=== PATIENT | male | born 1950 | race Caucasian/White ===

== ENCOUNTER 2016-06-16 01:42 | Day surgery (SDC) | payer OTHER ==
[~2016-06-16] VITALS: Ht 182.9 cm; Wt 102.0 kg
[~2016-06-16 01:42] MED LIST: LIP40 PO
[2016-06-16] MEDS ORDERED: 0.9% Sodium Chloride 1,000 ML IV SCH (06:00)
[2016-06-16] MEDS ORDERED: Sodium Chloride LOK Flush 10 mL Syringe IV PRN (06:00)
[2016-06-16] MEDS ORDERED: fentaNYL-PF 50 mCg/mL 2 mL Inj IVPUSH PRN (06:00)
[2016-06-16 12:23] VITALS: BP 137/88; PULSE 76; RESP 18; O2SAT 93
[2016-06-16 14:12] VITALS: BP 128/83; PULSE 74; RESP 16; O2SAT 95
[2016-06-16 14:22] VITALS: BP 137/87; PULSE 72; RESP 16; O2SAT 93
[2016-06-16 14:32] VITALS: BP 121/83; PULSE 84; RESP 16; O2SAT 91
--- NOTE | 2016-06-16 23:54 | ENDO ---
[address] [address] ENDOSCOPY PROCEDURE PATIENT: QUENTIN MUNIZ : 1950 MR#: [id number] ADMIT: 06/16/2016 JOB ID: [id number] DATE OF PROCEDURE: 06/16/2016 PRIMARY PROVIDER: Des Curtis DO. PROCEDURE: Colonoscopy with hot snare polypectomy and Endoclip deployment. INDICATIONS: A 65-year-old male with a personal history of colon polyps returning for surveillance. EQUIPMENT: [employer]. SEDATION: 1. Versed 3 mg. 2. Fentanyl 75 mcg. COMPLICATIONS: None identified. BOWEL PREPARATION: Fair, adequate exam. PROCEDURE INFORMATION: After the risks and benefits were explained, written and verbal informed consent was obtained. The patient was brought into the endoscopy suite and placed into the left lateral decubitus position. Sedation was achieved as above. A digital rectal examination was accomplished. No significant pathology appreciated. The scope was introduced into the rectum and advanced to the cecum as identified by the appendiceal orifice and ileocecal valve. The scope was slowly withdrawn to carefully examine the mucosa for any defects or lesions. Comprehensive rectal imaging was pursued. The colon then decompressed, the scope was removed from the patient, who tolerated the procedure well. FINDINGS: In the distal descending colon at about 35 cm from the anal verge there was a pedunculated approximately 1 cm bilobed polyp removed with hot snare. There was a small amount of heme associated with the stalk and we; therefore, elected to place a prophylactic resolution clip to prophylax against post polypectomy bleeding. No other significant pathology was appreciated throughout. ENDOSCOPIC DIAGNOSIS: Colon polyp. RECOMMENDATIONS: 1. Await histopathology. 2. Repeat colonoscopy in three years.
--- NOTE | 2016-06-24 16:03 | PATH ---
SURGICAL PATHOLOGY Attending Physician:Geeta Ryan CASE STATUS: Signed Out * Amended * PATIENT NAME: QUENTIN MUNIZ PID: [id number] : 1950 DATE COLLECTED:06/16/2016 00:00 SPECIMEN: Colon, Biopsy CLINICAL HISTORY: 1). DESCENDING COLON POLYP FINAL DIAGNOSIS: Descending Colon, Polyp, Biopsy: Tubular adenoma; negative for high-grade dysplasia. ICD10 D12.4 This case was reviewed and interpreted by Dr. Elis Duke. The final diagnosis is unchanged. This amendment is issued in order for the report to cross the interface and be available in the hospital electronic medical record. GROSS DESCRIPTION: The specimen is received in one formalin filled container labeled with the patient's name, sublabeled "descending colon polyp" and consists of a 0.5 x 0.4 x 0.4 CM portion of tissue which is bisected and totally submitted in one cassette. 06/17/2016 [facility] ICD-9 CODES: CPT CODES: 1: 86137 AMENDMENT(S): Amended: 06/24/2016 by Angelica Rebollar Reason:Miscellaneous The final diagnosis is unchanged. This amendment is issued in order for the report to cross the interface and be available in the hospital electronic medical record. Previous Signout Date: 06/19/2016 Electronically Signed Out Oriana Ford MD [facility] Pathology [facility] [address], [place] [address] Technical component performed at [facility], [address] [place] [address] Ave[address], [place], [address]
== END 2016-06-16 23:59 | disposition home or self-care (01) ==
LOC: END 01:42
PROVIDERS: ATTEND Internal Medicine Gastroenterology
DX: Z12.11 Encounter for screening for malignant neoplasm of colon (principal); D12.4 Benign neoplasm of descending colon; Z86.010 Personal history of colon polyps; J44.9 Chronic obstructive pulmonary disease, unspecified; E78.5 Hyperlipidemia, unspecified; R73.03 Prediabetes; Z87.891 Personal history of nicotine dependence
CPT/HCPCS: 45385; 99153; G0500; J7030